=== PATIENT | male | born 1935 | race Caucasian/White ===

== ENCOUNTER 2017-05-30 14:59 | Observation (INO) ==
[2017-05-30 15:36] LABS: Basophils # 0.1 K/mcL (0.0-0.2); Basophils % 0.7 %; Eosinophils # 0.3 K/mcL (0.0-0.6); Eosinophils % 4.8 %; Hematocrit 45.6 % (37.5-50.1); Hemoglobin 15.2 g/dL (12.9-16.9); Immature Granulocytes % 0.3 % (0-4); Lymphocytes % 29.7 %; Mean Corpuscular HGB Conc 33.3 g/dL (31.6-35.5); Mean Corpuscular Hemoglobin 29.9 pg (28.0-33.3); Mean Corpuscular Volume 89.6 fL (83.0-100.0); Mean Platelet Volume 9.3 fL (9.4-12.4); Monocytes # 0.6 K/mcL (0.0-1.3); Neutrophils # 3.7 K/mcL (1.6-8.9); Platelet Count 219 K/mcL (140-400); Red Blood Count 5.09 M/mcL (4.19-5.50); Red Cell Distribution Width 12.7 % (11.5-14.5); Segmented Neutrophils % 55.5 %
[2017-05-30 15:41] LABS: Prothrombin Time 10.5 Seconds (9.4-12.1)
[2017-05-30 15:44] LABS: Activated Partial Thrombo Time 31.7 Seconds (26.0-36.0)
[2017-05-30 15:49] LABS: BUN/Creatinine Ratio 15 (6-26); Blood Urea Nitrogen 21 mg/dL (8-26); Calcium 9.4 mg/dL (8.6-10.8); Carbon Dioxide 26 mEq/L (19-29); Chloride 107 mEq/L (98-109); Glucose 109 mg/dL (70-99); Osmolality,Calculated 294 (280-300); Potassium 4.1 mEq/L (3.5-4.5); Sodium 140 mEq/L (136-145); eGFR For African Americans 58 (> 60); eGFR For Non-African Americans 47 (> 60)
[2017-05-30 15:50] LABS: Ethanol < 10 mg/dL (0-10)
[2017-05-30] MEDS ORDERED: Acetaminophen 325 MG TABLET PO ONE (17:33)
--- NOTE | 2017-05-30 18:07 | Emergency Department Note ---
Disposition Clinical Impression: Transient cerebral ischemia Disposition: Admitted As Inpatient Condition: Good Instructions: Transient Ischemic Attack (ED) Reasons to Return/Additional Instructions: Please follow-up with your primary care provider for continuation of your care. Return to the emergency department if you develop any worsening of your condition or if you develop new concerning symptoms. Referrals: Ellis Dejesus MD [Primary Care Provider] - Forms: ED Satisfaction Letter Neuro HPI - General Chief Complaint: ED Neuro Symptoms/Deficit Stated Complaint: neuro symptoms started at 0800/0830 Time Seen by Provider: 05/30/17 16:00 Source: patient Mode of arrival: ambulatory Limitations: no limitations Nursing Notes Reviewed: Yes Vital Signs Reviewed: Yes - History of Present Illness HPI Narrative: 81-year-old male presents for concerns of left facial paresthesias and slurred speech. Patient states that this is happened one time before last year however it did not happen again until today. Patient states that he has had slurred speech multiple times, starting at 7:30 AM which lasted multiple hours and then improved and then returned again. Patient is currently at his baseline in the emergency department. He denies facial droop or focal motor neurologic deficit. No recent trauma. Has not changed his medications recently. - Related Data Home Medications: Home Medications Medication Instructions Recorded Confirmed Aspirin 81 mg PO DAILY 01/29/17 01/29/17 Cholecalciferol (D-3) [Vitamin D] 2,000 unit PO DAILY 01/29/17 01/29/17 Cyanocobalamin (Vitamin B-12) 1,000 mcg SL DAILY 01/29/17 01/29/17 [Vitamin B-12] Fenofibrate Nanocrystallized 145 mg PO DAILY 01/29/17 01/29/17 [Tricor] Finasteride [Proscar] 5 mg PO DAILY 01/29/17 01/29/17 Furosemide [Lasix] 40 mg PO DAILY PRN 01/29/17 01/29/17 Losartan Potassium [Cozaar] 100 mg PO DAILY 01/29/17 01/29/17 Mv-Mn/FA/Vit K/Lycop/Lut/Coq10 1 each PO DAILY 01/29/17 01/29/17 [Daily Multivitamin Capsule] Oxycodone HCl/Acetaminophen 1 each PO DAILY PRN 01/29/17 01/29/17 [Percocet 5-325 mg Tablet] Simvastatin [Zocor] 20 mg PO HS 01/29/17 01/29/17 Tamsulosin HCl [Flomax] 0.4 mg PO DAILY 01/29/17 01/29/17 Ubidecarenone [Co Q-10] 10 mg PO DAILY 01/29/17 01/29/17 glipiZIDE [Glucotrol] 5 mg PO DAILY 01/29/17 01/29/17 Allergies/Adverse Reactions: Allergies Allergy/AdvReac Type Severity Reaction Status Date / Time sulfamethoxazole Allergy See Verified 01/29/17 07:42 [From Bactrim] Comments trimethoprim [From Bactrim] Allergy See Verified 01/29/17 07:42 Comments All systems ED: reviewed and negative except as stated. Constitutional: Denies: fever, chills, weakness ENT ED: Denies: ear pain, throat pain Cardiovascular: Denies: chest pain, palpitations, dyspnea on exertion Respiratory: Denies: cough, dyspnea, wheezes, hemoptysis Gastrointestinal: Denies: abdominal pain, nausea, vomiting Neurological: Reports: numbness, paresthesias Past Medical History - Past Medical History Attestation: Yes The following information was validated with the patient. Source: patient Medical history: Reports: diabetes, hyperlipidemia, hypertension, RA, renal disease Psychiatric history: Reports: no psych history - Social History Smoking Status: Current some day smoker Smokeless Tobacco Status: No Alcohol use: Reports: none Drug use: Reports: none Physical Exam General: Alert and in no acute distress Skin: Warm, dry, intact Head: Normocephalic and atraumatic Neck: Supple, trachea midline and no tenderness Cardiovascular: RRR, no murmur, normal perfusion Respiratory: CTAB, no wheezing, cough, or respiratory distress Musculoskeletal: Normal strength, no tenderness, swelling or deformity GI: Soft, nontender, nondistended. Bowel sounds present Neuro: A&O to person, place, time and situation. No focal deficits noted on exam. Finger to nose testing and [id number] testing intact bilaterally. Cranial nerve exam intact to examination. No sensory deficits on exam. Psychiatric: cooperative and appropriate mood and affect. - General General appearance: alert, in no apparent distress Course Vital Signs Temperature 97.5 F L 05/30/17 15:02 Pulse Rate 76 05/30/17 15:02 Respiratory Rate 18 05/30/17 15:02 Blood Pressure 172/80 05/30/17 15:02 O2 Sat by Pulse Oximetry 95 05/30/17 15:02 Temperature 97.5 F L 05/30/17 15:02 Pulse Rate 65 05/30/17 17:05 Respiratory Rate 18 05/30/17 17:05 Blood Pressure 148/72 05/30/17 17:05 O2 Sat by Pulse Oximetry 95 05/30/17 17:05 Oxygen Delivery Oxygen Delivery Room Air Neuro Symptoms/Deficit - MDM Narrative Medical decision making narrative: ABCD2 score of 5. CT of the head negative for acute intracranial hemorrhage or mass. Patient will be admitted to the hospital for further evaluation of his paresthesias and slurred speech with a likely MRI. - Medical Records Medical records reviewed: Yes I reviewed the patient's medical records. - Lab Data Lab results reviewed: Yes I reviewed the patient's lab results. Result diagrams: 05/30/17 15:24 05/30/17 15:24 Lab Results 05/30/17 05/30/17 05/30/17 Range/Units 15:03 15:24 15:24 WBC 6.7 (4.3-11.1) K/mcL RBC 5.09 (4.19-5.50) M/mcL Hgb 15.2 (12.9-16.9) g/dL Hct 45.6 (37.5-50.1) % MCV 89.6 (83.0-100.0) fL MCH 29.9 (28.0-33.3) pg MCHC 33.3 (31.6-35.5) g/dL RDW 12.7 (11.5-14.5) % Plt Count 219 (140-400) K/mcL MPV 9.3 L (9.4-12.4) fL Immature Gran % 0.3 (0-4) % Seg Neutrophils % 55.5 % Lymphocytes % 29.7 % Monocytes % 9.0 % Eosinophils % 4.8 % Basophils % 0.7 % Neutrophils # 3.7 (1.6-8.9) K/mcL Lymphocytes # 2.0 (0.6-4.6) K/mcL Monocytes # 0.6 (0.0-1.3) K/mcL Eosinophils # 0.3 (0.0-0.6) K/mcL Basophils # 0.1 (0.0-0.2) K/mcL PT 10.5 (9.4-12.1) Seconds INR 1.0 APTT 31.7 (26.0-36.0) Seconds Sodium (136-145) mEq/L Potassium (3.5-4.5) mEq/L Chloride (98-109) mEq/L Carbon Dioxide (19-29) mEq/L BUN (8-26) mg/dL Creatinine (0.72-1.25) mg/dL Est GFR ( Amer) (> 60) Est GFR (Non-Af Amer) (> 60) BUN/Creatinine Ratio (6-26) Glucose (70-99) mg/dL POC Glucose 96 H (58-89) Calculated Osmolality (280-300) Calcium (8.6-10.8) mg/dL Troponin I (0-0.03) ng/mL Ethyl Alcohol (0-10) mg/dL 05/30/17 05/30/17 Range/Units 15:24 15:24 WBC (4.3-11.1) K/mcL RBC (4.19-5.50) M/mcL Hgb (12.9-16.9) g/dL Hct (37.5-50.1) % MCV (83.0-100.0) fL MCH (28.0-33.3) pg MCHC (31.6-35.5) g/dL RDW (11.5-14.5) % Plt Count (140-400) K/mcL MPV (9.4-12.4) fL Immature Gran % (0-4) % Seg Neutrophils % % Lymphocytes % % Monocytes % % Eosinophils % % Basophils % % Neutrophils # (1.6-8.9) K/mcL Lymphocytes # (0.6-4.6) K/mcL Monocytes # (0.0-1.3) K/mcL Eosinophils # (0.0-0.6) K/mcL Basophils # (0.0-0.2) K/mcL PT (9.4-12.1) Seconds INR APTT (26.0-36.0) Seconds Sodium 140 (136-145) mEq/L Potassium 4.1 (3.5-4.5) mEq/L Chloride 107 (98-109) mEq/L Carbon Dioxide 26 (19-29) mEq/L BUN 21 (8-26) mg/dL Creatinine 1.43 H (0.72-1.25) mg/dL Est GFR ( Amer) 58 L (> 60) Est GFR (Non-Af Amer) 47 L (> 60) BUN/Creatinine Ratio 15 (6-26) Glucose 109 H (70-99) mg/dL POC Glucose (58-89) Calculated Osmolality 294 (280-300) Calcium 9.4 (8.6-10.8) mg/dL Troponin I 0.01 (0-0.03) ng/mL Ethyl Alcohol < 10 (0-10) mg/dL - Radiology Data Radiology results reviewed: Yes I reviewed the patient's radiology results. - EKG Data EKG attestation: Yes I reviewed and interpreted this EKG. EKG results narrative: ECG - interpreted by ED physician. Rate 75, normal sinus rhythm, no STEMI, TN, QT intervals, and QRS within normal limits NIH Stroke Scale - Level of Consciousness LOC: Alert - LOC Questions LOC Questions: Answers both correctly - LOC Commands LOC Commands: Performs both correctly - Best Gaze Best Gaze: Normal - Visual Visual: No visual loss - Facial Palsy Facial Palsy: Normal - Motor Arms Motor Arm-Left: No drift for 10 seconds Motor Arm-Right: No drift for 10 seconds - Motor Legs Motor Leg-Left: No drift for 5 seconds Motor Leg-Right: No drift for 5 seconds - Limb Ataxia Limb Ataxia: Absent of affected limb too weak to perform exam - Sensory Sensory: Normal - Best Language Best Language: No aphasia - Dysarthria Dysarthria: Normal - Extinction and Inattention Extinction and Inattention: Normal - NIHSS Total Score NIHSS Total Score: 0 TPA Checklist - LKW: 3-4.5 hrs Add. Warnings/Precautions Patient/family understanding: The patient/family members have been counseled and understood the risk, benefit , and alternatives of treatment.
[2017-05-30] MEDS ORDERED: Aspirin 81 MG TAB.CHEW PO ONE (18:34)
[2017-05-30 19:40] LABS: Bilirubin,Urine Negative (Negative); Blood,Urine Negative (Negative); Clarity,Urine Clear (Clear); Color,Urine Yellow (Yellow); Glucose,Urine (UA) Normal (Normal); Ketones,Urine Negative (Negative); Leukocyte Esterase,Urine Negative (Negative); Nitrite,Urine Negative (Negative); PH,Urine 6.5 pH Units (5.0-8.0); Protein,Urine Negative (Neg-Trace); Specific Gravity,Urine 1.022 (1.010-1.025); Urobilinogen,Urine Normal (Normal)
[2017-05-30 19:47] LABS: Amphetamine Screen,Urine Negative ng/mL (Cutoff=1000); Barbiturate Screen,Urine Negative ng/mL (Cutoff=200); Benzodiazepines Screen,Urine Negative ng/mL (Cutoff=200); Cannabinoid Screen,Urine Negative ng/mL (Cutoff = 50); Cocaine Screen,Urine Negative ng/mL (Cutoff= 300); Opiate Screen,Urine Negative ng/mL (Cutoff=300); Phencyclidine Screen,Urine Negative ng/mL (Cutoff=25)
[2017-05-30] MEDS ORDERED: 0.9 % Sodium Chloride 1,000 ML IVC SCH (23:45)
[2017-05-30] MEDS ORDERED: Furosemide 40 MG TABLET PO PRN (23:58)
[2017-05-30] MEDS ORDERED: Naloxone 0.4 MG/ML INJ IVP PRN (23:58)
[2017-05-30] MEDS ORDERED: Ondansetron 4 MG/2 ML VIAL IVP PRN (23:58)
--- NOTE | 2017-05-31 00:04 | Internal Med History&Physical ---
Date of Encounter: 05/31/17 Time of Encounter: 00:10 Assessment and Plan (1) Transient cerebral ischemia Current visit: Yes Status: Acute Left arm numbness and left facial numbness - now completely resolved - likely TIA Continue aspirin and statin CT brain - no acute intracranial process CXR - no acute process EKG - NSR with no acute ST-T changes Troponin - negative MRI Brain - pending Echo, Carotid doppler - pending Cardiac tele, labs in a.m. Qualifiers: Transient cerebral ischemia type: unspecified Qualified Code(s): G45.9 - Transient cerebral ischemic attack, unspecified (2) Essential hypertension Current visit: Yes Status: Chronic Essential hypertension, controlled, continue home meds, monitor (3) Type 2 diabetes mellitus Current visit: Yes Status: Chronic Diabetes mellitus type 2, [id number], hyperglycemia Continue insulin sliding scale, glucose checks Qualifiers: Diabetes mellitus complication status: without complication Diabetes mellitus buttermaker helper insulin use: without halfway use Qualified Code(s): E11.9 - Type 2 diabetes mellitus without complications (4) DVT prophylaxis Current visit: Yes Status: Acute Continue heparin subcutaneous Internal Medicine - H&P: HPI Chief complaint: Left arm and facial numbness Admitted From: Emergency Dept Plans for Post Hospital Care: Home History of present illness: Mr. Yung is a 81 year old male with past medical history of hypertension, diabetes, remote history of CVA, hyperlipidemia and BPH. Patient presents to the ED with complaints of left arm numbness and left facial numbness. On examination patient is awake and alert. Not in any distress. Able to provide history. No family at bedside. Patient states he developed left facial numbness and mild slurred speech and left arm numbness earlier in the day. Symptoms lasted for a few hours and then completely resolved. Patient does not does not have a facial droop or any focal neurological deficit. Patient seems to be back at baseline at present. Patient states he been taking all his medications regularly. Patient denies chest pain, denies shortness of breath denies palpitations denies fever vomiting diarrhea or any other problems. He says he feels better now and and does not have any numbness at this point. Initial CT of the head is negative for any acute change. MRI is pending an echocardiogram and ultrasound carotids pending. Patient will be on aspirin and statin. EKG shows normal sinus rhythm with no acute ST-T changes. Patient does not have any slurred speech or any focal deficits or weakness. Further workup pending. Patient has been explained about his condition and plan of care. Understood and agreed. No unanswered questions. CODE STATUS full code. Past Med Surg Social Fam HX - Past Medical History Medical history: CVA, diabetes, hyperlipidemia, hypertension, RA, renal disease Psychiatric history: no psych history - Past Surgical History Surgical History: non-contributory - Social History Smoking Status: Current some day smoker Smokeless Tobacco Status: No Alcohol use: none Drug use: none - Family History Paternal Grandmother Hx Family Cardiac Disorders: No Hx Family Respiratory Disorders: No Hx Family Cancer: No Hx Family GI Disorders: No Hx Family Genitourinary Disorders: No Hx Family Endocrine Disorder: Yes (DM) Hx Family Musculoskeletal Disorders: No Hx Family Neuromuscular Disorders: No Hx Family Neurologic Disorders: No Hx Family HEENT Disorders: No Hx Family Autoimmune Disorders: No Hx Family Reproductive Disorders: No Hx Family Psychosocial Disorders: No Hx Family Medical Disorders: No Internal Medicine - H&P: Meds Aspirin 81 mg PO DAILY 01/29/17 [History] Cholecalciferol (D-3) [Vitamin D] 2,000 unit PO DAILY 01/29/17 [History] Cyanocobalamin (Vitamin B-12) [Vitamin B-12] 1,000 mcg SL DAILY 01/29/17 [ History] Fenofibrate Nanocrystallized [Tricor] 145 mg PO DAILY 01/29/17 [History] Finasteride [Proscar] 5 mg PO DAILY 01/29/17 [History] Furosemide [Lasix] 40 mg PO DAILY PRN 01/29/17 [History] Losartan Potassium [Cozaar] 100 mg PO DAILY 01/29/17 [History] Mv-Mn/FA/Vit K/Lycop/Lut/Coq10 [Daily Multivitamin Capsule] 1 each PO DAILY [History] Oxycodone HCl/Acetaminophen [Percocet 5-325 mg Tablet] 1 each PO DAILY PRN 01/29 [History] Simvastatin [Zocor] 20 mg PO HS 01/29/17 [History] Tamsulosin HCl [Flomax] 0.4 mg PO DAILY 01/29/17 [History] Ubidecarenone [Co Q-10] 10 mg PO DAILY 01/29/17 [History] glipiZIDE [Glucotrol] 5 mg PO DAILY 01/29/17 [History] Allergies sulfamethoxazole [From Bactrim] Allergy (Verified 01/29/17 07:42) See Comments "messes with my blood cells" trimethoprim [From Bactrim] Allergy (Verified 01/29/17 07:42) See Comments "messes with my blood cells" All Systems PM: A 10-system review of systems was performed and is negative for pertinent findings except as documented above in the HPI. - Constitutional Constitutional: no fatigue, no fever(s), no weakness - EENT Eyes: no blurry vision - Cardiovascular Cardiovascular ROS IM: no chest pain, no diaphoresis, no dyspnea, no dyspnea on exertion, no lightheadedness, no orthopnea, no syncope - Respiratory Respiratory: no cough, no dyspnea, no dyspnea on exertion, no wheezing, no chest congestion - Gastrointestinal Gastrointestinal: no abdominal pain, no bloating, no cramping, no diarrhea, no melena, no nausea, no vomiting - Genitourinary Genitourinary ROS male: no dysuria - Musculoskeletal Musculoskeletal ROS IM: no arthralgias - Neurological Neurological ROS: numbness, no abnormal gait, no abnormal speech, no behavioral changes, no dizziness, no focal weakness, no loss of vision, no tingling, no weakness - Constitutional Vitals: Temp Pulse Resp BP Pulse Ox 97.6 F 69 16 153/79 96 05/30/17 23:09 05/30/17 23:09 05/30/17 23:09 05/30/17 23:09 05/30/17 23:09 General appearance: Present: A&O X 3, pleasant, no acute distress, answers questions appropriately - Head Head exam: Present: atraumatic - Eye Eye exam: Present: EOMI - Neck Neck exam general surgery: Present: supple - Respiratory Respiratory exam: Present: CTAB. Absent: chest wall tenderness, rales, rhonchi , wheezes, tachypnea - Cardiovascular Cardiovascular exam: Present: RRR, +S1, +S2 - GI/Abdominal GI/Abdominal exam: Present: soft, no peritoneal signs. Absent: distended, firm , guarding, rigid, tenderness - Extremities Exam Extremities exam: Present: radial pulses palpable and symetrical. Absent: cyanotic, pedal edema, tenderness - Neurological Exam Neurological exam: Present: alert, oriented X3, no focal deficits. Absent: pronater drift, facial droop, speech deficit Internal Med - H&P Results - Labs CBC & Chem 7: 05/31/17 00:33 05/31/17 00:33
[2017-05-31] MEDS ORDERED: *HR* Dextrose 50 % in Water (Syg) 50 ML SYRINGE IVP PRN (00:09)
[2017-05-31] MEDS ORDERED: Dextrose Gel 15 GM PO PRN ×2 (00:09)
[2017-05-31] MEDS ORDERED: D5% in Water 1,000 ML IVC PRN (00:09)
[2017-05-31 00:55] LABS: Basophils % 0.6 %; Eosinophils # 0.3 K/mcL (0.0-0.6); Eosinophils % 5.1 %; Hematocrit 40.9 % (37.5-50.1); Hemoglobin 13.8 g/dL (12.9-16.9); Immature Granulocytes % 0.4 % (0-4); Lymphocytes # 1.9 K/mcL (0.6-4.6); Lymphocytes % 35.1 %; Mean Corpuscular HGB Conc 33.7 g/dL (31.6-35.5); Mean Corpuscular Hemoglobin 29.8 pg (28.0-33.3); Mean Corpuscular Volume 88.3 fL (83.0-100.0); Mean Platelet Volume 9.3 fL (9.4-12.4); Monocytes # 0.5 K/mcL (0.0-1.3); Monocytes % 8.8 %; Neutrophils # 2.7 K/mcL (1.6-8.9); Platelet Count 191 K/mcL (140-400); Red Blood Count 4.63 M/mcL (4.19-5.50); Red Cell Distribution Width 12.9 % (11.5-14.5)
[2017-05-31 01:09] LABS: Calcium 9.2 mg/dL (8.6-10.8); Magnesium 1.8 mg/dL (1.6-2.6); Potassium 3.8 mEq/L (3.5-4.5)
[2017-05-31 01:18] LABS: Hemoglobin A1C 5.9 %
[2017-05-31] MEDS: *HR* Heparin 5,000 UNIT/ML VIAL SQ SCH ×2 (06:30→17:45)
[2017-05-31] MEDS: Insulin LISPRO 300 UNITS/3 ML VIAL SQ SCH ×3 (07:32→17:30)
[2017-05-31] MEDS ORDERED: Aspirin 81 MG TAB.CHEW PO SCH (09:00)
[2017-05-31] MEDS ORDERED: (Ubidecarenone [Co Q-10] 10 MG) PO SCH (09:00)
[2017-05-31] MEDS ORDERED: Famotidine 20 MG TABLET PO SCH (09:00)
[2017-05-31] MEDS: Fenofibrate 54 MG TABLET PO SCH (09:23)
[2017-05-31] MEDS: Multivit/Ca/Min/Fe/FA 1 TAB TABLET PO SCH (09:23)
[2017-05-31] MEDS: Acetaminophen 325 MG TABLET PO PRN (09:23)
[2017-05-31] MEDS: Cyanocobalamin (B-12) 1,000 MCG TABLET PO SCH (09:24)
[2017-05-31] MEDS: Finasteride 5 MG TABLET PO SCH (09:24)
[2017-05-31] MEDS: Cholecalciferol (D-3) 1,000 UNIT TABLET PO SCH (09:24)
--- NOTE | 2017-05-31 17:38 | Event Note ---
Date of Encounter: 05/31/17 Time of Encounter: 14:00 81-year-old male with past medical history of diabetes, hypertension, hyperlipidemia and remote history of suspected CVA. In 1991, patient developed left facial and left arm numbness that lasted for a few hours and then resolved completely, he never saw a doctor. This time, he presented with left arm and facial numbness with associated slurred speech. All his symptoms resolved before arrival to our ED. CT head was unremarkable. Brain MRI showed acute subcentimeter infarcts involving the right precentral gyrus and superior right temporal lobe. Doppler of carotid showed 40-59% stenosis in the right ICA. a/p: 1. Acute stroke. 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 Echocardiogram results pending. Consult neuro. start Plavix and Lipitor. 2. HTN. Continue home dose losartan.
[2017-06-01] MEDS: Acetaminophen 325 MG TABLET PO PRN ×2 (01:34→13:16)
[2017-06-01 05:12] LABS: Basophils % 0.5 %; Eosinophils # 0.3 K/mcL (0.0-0.6); Eosinophils % 4.4 %; Hematocrit 42.6 % (37.5-50.1); Hemoglobin 14.2 g/dL (12.9-16.9); Immature Granulocytes % 0.3 % (0-4); Lymphocytes # 1.9 K/mcL (0.6-4.6); Lymphocytes % 32.6 %; Mean Corpuscular HGB Conc 33.3 g/dL (31.6-35.5); Mean Corpuscular Hemoglobin 29.8 pg (28.0-33.3); Mean Corpuscular Volume 89.3 fL (83.0-100.0); Mean Platelet Volume 9.5 fL (9.4-12.4); Monocytes # 0.6 K/mcL (0.0-1.3); Monocytes % 9.5 %; Neutrophils # 3.1 K/mcL (1.6-8.9); Platelet Count 198 K/mcL (140-400); Red Blood Count 4.77 M/mcL (4.19-5.50); Red Cell Distribution Width 12.8 % (11.5-14.5); Segmented Neutrophils % 52.7 %
[2017-06-01 05:27] LABS: Calcium 9.3 mg/dL (8.6-10.8); Magnesium 1.8 mg/dL (1.6-2.6)
[2017-06-01] MEDS: *HR* Heparin 5,000 UNIT/ML VIAL SQ SCH (05:29)
[2017-06-01] MEDS: Insulin LISPRO 300 UNITS/3 ML VIAL SQ SCH ×2 (07:15→12:39)
[2017-06-01] MEDS: Multivit/Ca/Min/Fe/FA 1 TAB TABLET PO SCH (08:57)
[2017-06-01] MEDS: Fenofibrate 54 MG TABLET PO SCH (08:57)
[2017-06-01] MEDS: Cyanocobalamin (B-12) 1,000 MCG TABLET PO SCH (08:57)
[2017-06-01] MEDS: Finasteride 5 MG TABLET PO SCH (08:58)
[2017-06-01] MEDS: Cholecalciferol (D-3) 1,000 UNIT TABLET PO SCH (08:58)
[2017-06-01] MEDS ORDERED: Famotidine 20 MG TABLET PO SCH (09:00)
--- NOTE | 2017-06-01 09:10 | Neurology - Consult Note ---
Date of Encounter: 06/01/17 Time of Encounter: 09:07 Assessment and Plan (1) Stroke Current Visit: Yes Status: Acute 81-year old man with prior history of hypertension and TIAs, with subacute stroke, with only sensory deficits, matching up to right parietal cortex. Was on ASA 81, which has been changed to plavix. Carotid duplex showing 50% stenosis on the right ICA. Ok with plavix. Symptomatic stenosis of the right ICA should be evaluated (Vascular) - may need endarterectomy. Lipid levels and lipid control. Risk factor control - on diabetic meds Follow-up with outpatient Neurology with Dr. Rubio/Ivet in 2 weeks after discharge. Qualifiers: CVA mechanism: embolism Precerebral and cerebral artery: middle cerebral artery Laterality of affected vessel: right Qualified Code(s): I63.411 - Cerebral infarction due to embolism of right middle cerebral artery History of Present Illness Chief complaint: stroke HPI: Mr. Yung is a 81 year old male with prior history of hypertension, history of TIAs, (previously evaluated 4 years ago, placed on ASA 325, which was changed to 81; also told that he had mild carotid disease on the right) who noticed that he had sensory symptoms in his left face and left arm/hand that did not go away (as usually it does). So he got worried and came here to the hospital. His brother has had similar symptoms and has had to have carotid endarterectomy done on both sides. He had an MRI brain yesterday and was found to have acute strokes in the right parietal lobe. He reports no weakness, and he is ambulating in his room now. No fevers, no chills, no shortness of breath , no chest pain, no diaphoresis. No other complaints. Past Med Surg Social Fam HX - Past Medical History Medical history: CVA, diabetes, hyperlipidemia, hypertension, RA, renal disease Psychiatric history: no psych history - Past Surgical History Surgical History: non-contributory - Social History Smoking Status: Current some day smoker Smokeless Tobacco Status: No Alcohol use: none Drug use: none - Family History Paternal Grandmother Hx Family Cardiac Disorders: No Hx Family Respiratory Disorders: No Hx Family Cancer: No Hx Family GI Disorders: No Hx Family Genitourinary Disorders: No Hx Family Endocrine Disorder: Yes (DM) Hx Family Musculoskeletal Disorders: No Hx Family Neuromuscular Disorders: No Hx Family Neurologic Disorders: No Hx Family HEENT Disorders: No Hx Family Autoimmune Disorders: No Hx Family Reproductive Disorders: No Hx Family Psychosocial Disorders: No Hx Family Medical Disorders: No Medications and Allergies Aspirin 81 mg PO DAILY 01/29/17 [History] Cholecalciferol (D-3) [Vitamin D] 2,000 unit PO DAILY 01/29/17 [History] Cyanocobalamin (Vitamin B-12) [Vitamin B-12] 1,000 mcg SL DAILY 01/29/17 [ History] Fenofibrate Nanocrystallized [Tricor] 145 mg PO DAILY 01/29/17 [History] Finasteride [Proscar] 5 mg PO DAILY 01/29/17 [History] Furosemide [Lasix] 40 mg PO DAILY PRN 01/29/17 [History] Losartan Potassium [Cozaar] 100 mg PO DAILY 01/29/17 [History] Mv-Mn/FA/Vit K/Lycop/Lut/Coq10 [Daily Multivitamin Capsule] 1 each PO DAILY [History] Oxycodone HCl/Acetaminophen [Percocet 5-325 mg Tablet] 1 each PO DAILY PRN 01/29 [History] Simvastatin [Zocor] 20 mg PO HS 01/29/17 [History] Tamsulosin HCl [Flomax] 0.4 mg PO DAILY 01/29/17 [History] Ubidecarenone [Co Q-10] 10 mg PO DAILY 01/29/17 [History] glipiZIDE [Glucotrol] 5 mg PO DAILY 01/29/17 [History] Allergies sulfamethoxazole [From Bactrim] Allergy (Verified 01/29/17 07:42) See Comments "messes with my blood cells" trimethoprim [From Bactrim] Allergy (Verified 01/29/17 07:42) See Comments "messes with my blood cells" All Systems: A 10-system review of systems was performed and is negative for pertinent findings except as documented above in the HPI. - Constitutional Constitutional ROS IM: as per HPI Physical Examination - Vital Signs Vital Signs: Initial Vital Signs Temp Pulse Resp BP Pulse Ox 97.5 F L 76 18 172/80 95 05/30/17 15:02 05/30/17 15:02 05/30/17 15:02 05/30/17 15:02 07/21/17 15:02 Vital Signs - 24 hr 05/31/17 09:20 05/31/17 11:51 05/31/17 15:25 Temperature 97.7 F 98.2 F Pulse Rate 59 66 Respiratory Rate 16 17 Blood Pressure 171/80 162/77 O2 Sat by Pulse Oximetry 97 96 95 05/31/17 19:06 05/31/17 22:29 06/01/17 03:18 Temperature 97.4 F L 98.1 F 97.9 F Pulse Rate 71 70 67 Respiratory Rate 15 18 18 Blood Pressure 154/80 112/54 119/60 O2 Sat by Pulse Oximetry 93 95 94 06/01/17 06:41 Temperature 97.8 F Pulse Rate 65 Respiratory Rate 12 Blood Pressure 137/73 O2 Sat by Pulse Oximetry 96 - Exam Exam: Man of stated age, A&O x 4, ambulating with no motor weakness. - Constitutional General appearance: comfortable - Neurologic Sensorimotor examination: intact, other (no double distinction deficit) Motor examination - right side: 5/5: deltoids, biceps, triceps, wrist flexion, wrist extension, bottom wheeler, hip flexors, tibialis Anterior, quadriceps, toe extension (EHL), plantarflexion Motor examination - left side: 5/5: deltoids, biceps, triceps, wrist flexion, wrist extension, hip flexors, bottom wheeler, quadriceps, tibialis Anterior, toe extension (EHL), plantarflexion Detailed sensory examination: intact Reflex and gait examination: other (left hyper-reflexia in the upper extremities ) Reflexes: Biceps: 2+, Triceps: 2+, Brachioradialis: 2+, Patella: 0, Achilles: 0 Mental Status Examination: awake, alert, oriented to person, oriented to place, oriented to time, follows commands appropriately, answers questions appropriately, no agnosia, no aphasia, no aproxia Cranial nerve examination: PERRL, EOMI, visual kline intact, corneal reflexes brisk symmetrically, sensory to face intact, mastication intact, no facial asymmetry is present, no dysarthria, hearing is intact symmetrically, soft palate elevates bilaterally upon phonation, gag reflex intact, flexes SCM and trapezius muscles symmetrically with full power, tongue protrudes midline, no atrophy or facial fasiculations present Cerebellar examination: no dysmetria, performs finger to nose and heel to carroll symmetrically without ataxia, no gait ataxia, no truncal ataxia, no difficulty with rapid alternating movements Results - Laboratory Findings CBC and BMP: 06/01/17 04:39 06/01/17 04:39 Abnormal lab findings: Abnormal lab results Creatinine 1.42 mg/dL (0.72-1.25) H 06/01/17 04:39 Est GFR ( Amer) 58 (> 60) L 06/01/17 04:39 Est GFR (Non-Af Amer) 48 (> 60) L 06/01/17 04:39 Glucose 105 mg/dL (70-99) H 06/01/17 04:39 POC Glucose 111 (58-89) H 06/01/17 06:45 Hemoglobin A1c 5.9 % (-5.6) H 05/31/17 00:33 Laboratory Results WBC 5.9 K/mcL (4.3-11.1) 06/01/17 04:39 RBC 4.77 M/mcL (4.19-5.50) 06/01/17 04:39 Hgb 14.2 g/dL (12.9-16.9) 06/01/17 04:39 Hct 42.6 % (37.5-50.1) 06/01/17 04:39 MCV 89.3 fL (83.0-100.0) 06/01/17 04:39 MCH 29.8 pg (28.0-33.3) 06/01/17 04:39 MCHC 33.3 g/dL (31.6-35.5) 06/01/17 04:39 RDW 12.8 % (11.5-14.5) 06/01/17 04:39 Plt Count 198 K/mcL (140-400) 06/01/17 04:39 MPV 9.5 fL (9.4-12.4) 06/01/17 04:39 Immature Gran % 0.3 % (0-4) 06/01/17 04:39 Seg Neutrophils % 52.7 % 06/01/17 04:39 Lymphocytes % 32.6 % 06/01/17 04:39 Monocytes % 9.5 % 06/01/17 04:39 Eosinophils % 4.4 % 06/01/17 04:39 Basophils % 0.5 % 06/01/17 04:39 Neutrophils # 3.1 K/mcL (1.6-8.9) 06/01/17 04:39 Lymphocytes # 1.9 K/mcL (0.6-4.6) 06/01/17 04:39 Monocytes # 0.6 K/mcL (0.0-1.3) 06/01/17 04:39 Eosinophils # 0.3 K/mcL (0.0-0.6) 06/01/17 04:39 Basophils # 0.0 K/mcL (0.0-0.2) 06/01/17 04:39 PT 10.5 Seconds (9.4-12.1) 05/30/17 15:24 INR 1.0 05/30/17 15:24 APTT 31.7 Seconds (26.0-36.0) 05/30/17 15:24 Sodium 138 mEq/L (136-145) 06/01/17 04:39 Potassium 4.0 mEq/L (3.5-4.5) 06/01/17 04:39 Chloride 107 mEq/L (98-109) 06/01/17 04:39 Carbon Dioxide 23 mEq/L (19-29) 06/01/17 04:39 BUN 21 mg/dL (8-26) 06/01/17 04:39 Creatinine 1.42 mg/dL (0.72-1.25) H 06/01/17 04:39 Est GFR ( Amer) 58 (> 60) L 06/01/17 04:39 Est GFR (Non-Af Amer) 48 (> 60) L 06/01/17 04:39 BUN/Creatinine Ratio 15 (6-26) 06/01/17 04:39 Glucose 105 mg/dL (70-99) H 06/01/17 04:39 POC Glucose 111 (58-89) H 06/01/17 06:45 Est Mean Plasma Glucose 123 mg/dl 05/31/17 00:33 Hemoglobin A1c 5.9 % (-5.6) H 05/31/17 00:33 Calculated Osmolality 289 (280-300) 06/01/17 04:39 Calcium 9.3 mg/dL (8.6-10.8) 06/01/17 04:39 Magnesium 1.8 mg/dL (1.6-2.6) 06/01/17 04:39 Troponin I 0.01 ng/mL (0-0.03) 05/30/17 15:24 Urine Color Yellow (Yellow) 05/30/17 19:26 Urine Clarity Clear (Clear) 05/30/17 19:26 Urine pH 6.5 pH Units (5.0-8.0) 05/30/17 19:26 Ur Specific [place] 1.022 (1.010-1.025) 05/30/17 19:26 Urine Protein Negative mg/dL (Neg-Trace) 05/30/17 19:26 Urine Glucose (UA) Normal mg/dL (Normal) 05/30/17 19:26 Urine Ketones Negative mg/dL (Negative) 05/30/17 19:26 Urine Blood Negative (Negative) 05/30/17 19:26 Urine Nitrite Negative (Negative) 05/30/17 19:26 Urine Bilirubin Negative (Negative) 05/30/17 19:26 Urine Urobilinogen Normal mg/dL (Normal) 05/30/17 19:26 Ur Leukocyte Esterase Negative (Negative) 05/30/17 19:26 Ur Culture Indicated? NO (NO) 05/30/17 19:26 Urine Opiates Screen Negative ng/mL (Wmhftw=632) 05/30/17 19:26 Ur Barbiturates Screen Negative ng/mL (Fvzcnw=567) 05/30/17 19:26 Ur Phencyclidine Scrn Negative ng/mL (Cutoff=25) 05/30/17 19:26 Ur Amphetamines Screen Negative ng/mL (Ioesba=6718) 05/30/17 19:26 U Benzodiazepines Scrn Negative ng/mL (Mwjsvf=902) 05/30/17 19:26 Urine Cocaine Screen Negative ng/mL (Cutoff= 300) 05/30/17 19:26 U Marijuana (THC) Screen Negative ng/mL (Cutoff = 50) 05/30/17 19:26 Ethyl Alcohol < 10 mg/dL (0-10) 05/30/17 15:24 Impressions Chest X-Ray 05/30/17 15:08 IMPRESSION: No evidence of acute cardiopulmonary disease. D/ / Jovany Li MD / Jovany Li MD Interpreting Provider: Jovany Li MD Head CT 05/30/17 17:38 IMPRESSION: No acute infarct Old right lentiform nucleus region infarct. D/ / Maik Sadler / Maik Sadler Interpreting Provider: Maik Sadler Brain MRI 05/31/17 00:03 IMPRESSION: 1. Acute subcentimeter infarcts involving the right precentral gyrus and superior right temporal lobe measuring 5 mm and 3 mm respectively. 2. No acute intracranial hemorrhage. 3. Remote right basal ganglia infarct. 4. Mild chronic small vessel ischemic changes. The findings were sent to the [facility]iology [facility] at 8:58 am on 05/31/2017to be communicated to a licensed caregiver. D/ / 05/31/2017 10:08:46 Scott Boyd MD / earyasmine Interpreting Provider: Scott Boyd MD Consult Discharge Plan - Plan Referrals: Ellis Dejesus MD [Primary Care Provider] -
[2017-06-01 09:50] LABS: Chol/HDL Ratio 4.7 (0-4.9)
[2017-06-01] MEDS ORDERED: *HR* Morphine 2 MG/ML SYRINGE IVP ONE (10:37)
[2017-06-01 11:00] VITALS: BP 169/81
--- NOTE | 2017-06-01 14:10 | Discharge Summary ---
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 Qualified Code(s): E11.9 - Type 2 diabetes mellitus without complications - Discharge Medications Prescriptions: Atorvastatin [Lipitor] 40 mg PO HS #30 tab Clopidogrel [Plavix] 75 mg PO DAILY #30 tab Home Medications: Cholecalciferol (D-3) [Vitamin D] 2,000 unit PO DAILY 01/29/17 [History] Cyanocobalamin (Vitamin B-12) [Vitamin B-12] 1,000 mcg SL DAILY 01/29/17 [ History] Fenofibrate Nanocrystallized [Tricor] 145 mg PO DAILY 01/29/17 [History] Finasteride [Proscar] 5 mg PO DAILY 01/29/17 [History] Furosemide [Lasix] 40 mg PO DAILY PRN 01/29/17 [History] Losartan Potassium [Cozaar] 100 mg PO DAILY 01/29/17 [History] Mv-Mn/FA/Vit K/Lycop/Lut/Coq10 [Daily Multivitamin Capsule] 1 each PO DAILY [History] Oxycodone HCl/Acetaminophen [Percocet 5-325 mg Tablet] 1 each PO DAILY PRN 01/29 [History] Tamsulosin HCl [Flomax] 0.4 mg PO DAILY 01/29/17 [History] Ubidecarenone [Co Q-10] 10 mg PO DAILY 01/29/17 [History] glipiZIDE [Glucotrol] 5 mg PO DAILY 01/29/17 [History] Atorvastatin [Lipitor] 40 mg PO HS #30 tab 06/01/17 [Rx] Clopidogrel [Plavix] 75 mg PO DAILY #30 tab 06/01/17 [Rx] Allergies/Adverse Reactions: Allergies sulfamethoxazole [From Bactrim] Allergy (Verified 01/29/17 07:42) See Comments "messes with my blood cells" trimethoprim [From Bactrim] Allergy (Verified 01/29/17 07:42) See Comments "messes with my blood cells" Procedures/tests Complete & Pending: Procedures Performed prior 72 hours Category Date Time Status MR angio head wo con [MR] Stat MRI 06/01/17 08:53 Draft MR angio neck wo/w con [MR] Stat MRI 06/01/17 08:53 Draft MR head/brain wo con [MR] Routine MRI 05/31/17 00:03 Completed ECG 12 lead ECG [ECG] AM 0600 Y 05/31/17 06:00 Ordered EV carotid duplex imaging BI Routine Y 05/31/17 00:03 Completed EV echocardiogram Routine Y 05/31/17 00:03 Completed Date of admission: 05/30/17 21:41 Primary care physician: Ellis Dejesus MD Consults: 05/31/17 00:01 Consult to Occupational Therapy [CONS] Routine Comment: Evaluate, develop and implement POC Reason for Consult: pt eval Consult to Physical Therapy [CONS] Routine Comment: Evaluate, develop and implement POC Reason for Consult: ot eval Consult to Radiology Physician [CONS] Routine Reason for SW Consult: d/c planning 05/31/17 00:02 Consult to Speech Therapy [CONS] Routine Comment: Evaluate, develop and implement POC Reason for Consult: swallow eval Call Completed: No 05/31/17 17:35 Consult to Neurology [CONS] Routine Consulting Provider: [facility] Reason for Consult: stroke Call Completed: No - Patient Status Disposition: Home, Self-Care Condition: Good - Discharge Instructions Instructions: Diabetes Mellitus Type 2 in Adults (DC), Ischemic Stroke (DC), Chronic Hypertension (DC) Follow Up With: Ellis Dejesus MD [Primary Care Provider] - (pls provide number to neurology clinic and vascular clinic. follow up in 1-2 weeks.) Additional Instructions: check your blood pressure twice daily, same time in the morning and evening. write down the numbers and bring record to doctor's appointment. check your blood sugars before meals and at bedtime. write down the numbers and bring record to doctor's appointment. - Diet and Activity Activity: resume usual activities as tolerated Diet: diabetic diet, low fat, low cholesterol, low salt diet Interval History: Patient denies any chest pain, shortness of breath, or focal deficit. Hospital course: Mr. Yung is a 81 year old male with past medical history of diabetes, hypertension, hyperlipidemia and remote history of suspected CVA. In 1991, patient developed left facial and left arm numbness that lasted for a few hours and then resolved completely, he never saw a doctor. This time, he presented with left arm and facial numbness with associated slurred speech. All his symptoms resolved before arrival to our ED. CT head was unremarkable. Brain MRI showed acute subcentimeter infarcts involving the right precentral gyrus and superior right temporal lobe. Doppler of carotid showed 40-59% stenosis in the right ICA. Patient diagnosed with acute stroke. Lipid profile checked. Cardiogram showed LVEF 60%, mild concentric LVH. Doppler carotids showed 40-59 % stenosis in the right ICA. MRA of neck and head showed approximately 30% right carotid bulb stenosis, no additional hemodynamically significant stenosis or occlusion in the cervical or intracranial arterial circulation. Patient is started on Plavix and statin. PLAN: Follow-up in the neurology clinic. Follow-up in the vascular surgery clinic. - Time Spent with Patient Total time spent providing and/or coordinating discharge services: - Constitutional Vitals: Temp Pulse Resp BP Pulse Ox 97.8 F 64 16 169/81 95 06/01/17 10:59 06/01/17 10:59 06/01/17 10:59 06/01/17 10:59 06/01/17 10:59 General appearance: Present: cooperative, A&O X 3, pleasant, no acute distress, answers questions appropriately - Neck Neck exam general surgery: Present: supple, trachea midline. Absent: lymphadenopathy - Respiratory Respiratory exam: Present: CTAB - Cardiovascular Cardiovascular exam: Present: RRR - GI/Abdominal GI/Abdominal exam: Present: normal bowel sounds, soft. Absent: distended, tenderness - Extremities Exam Extremities exam: Absent: pedal edema - Back Exam Back exam: Absent: CVA tenderness (L), CVA tenderness (R) - Neurological Exam Neurological exam: Present: alert, oriented X3, no focal deficits, strengths equal and symetr throughout. Absent: facial droop, speech deficit - Skin Skin exam: Absent: rash - Stroke Is the patient on any antithrombotics?: Yes Are there any contradictions to antithrombotics?: No
--- NOTE | 2017-06-02 12:27 | Carotid Imaging Report ---
Carotid Duplex Patient Name:Shaw Yung Order Number:[id number] Procedure Date:05/31/2017 Date:1935ge:81 yrs Gender:Male Location:[facility] Room #: 3B31 Pump Oiler:Hue Johnson, RVT, RDCS Referring MD:Frederick White MD newspaper deliverer:Ellis Dejesus M.D. Reading MD:Rachid Aquino MD , FACS Primary Indications:TIA Risk Factors Yes/No Hypertension Yes Diabetes Yes Hypercholesterolemia Yes Smoking Current Yes Hx of TIA Yes Anticoagulants Yes Impressions: Findings: Right proximal ICA has a moderate, 40-59% stenosis. Findings: Left carotid system has nonstenotic plaque. Findings Carotid Duplex: Right: The right proximal common carotid artery has a PSV of 64 cm/s and a EDV of 13 cm/s. The right mid common carotid artery has a PSV of 90 cm/s and a EDV of 16 cm/s. The right distal common carotid artery has a PSV of 73 cm/s and a EDV of 14 cm/s. There is nonstenotic plaque in the right bifurcation with a PSV of 92 cm/s and a EDV of 16 cm/s. There is calcified plaque. There is 40-59% stenosis in the right proximal internal carotid artery with a PSV of 159 cm/s and a EDV of 28 cm/s. There is calcified plaque. The right mid internal carotid artery has a PSV of 108 cm/s and a EDV of 25 cm/s. The right distal internal carotid artery has a PSV of 73 cm/s and a EDV of 20 cm/s. The right eca has a PSV of 84 cm/s and a EDV of 12 cm/s. The right vertebral artery has a PSV of 42 cm/s and a EDV of 14 cm/s. Left: The left proximal common carotid artery has a PSV of 80 cm/s and a EDV of 15 cm/s. There is nonstenotic plaque in the left mid common carotid artery with a PSV of 105 cm/s and a EDV of 19 cm/s. There is nonstenotic plaque in the left distal common carotid artery with a PSV of 95 cm/s and a EDV of 21 cm/s. There is nonstenotic plaque in the left bifurcation with a PSV of 68 cm/s and a EDV of 14 cm/s. The left proximal internal carotid artery has a PSV of 87 cm/s and a EDV of 18 cm/s. The left mid internal carotid artery has a PSV of 80 cm/s and a EDV of 23 cm/s. The left distal internal carotid artery has a PSV of 72 cm/s and a EDV of 20 cm/s. The left eca has a PSV of 81 cm/s and a EDV of 11 cm/s. The left vertebral artery has a PSV of 41 cm/s and a EDV of 12 cm/s. Carotid Results Right PSV EDV Assessment Proximal CCA 64 13 Normal Mid CCA 90 16 Normal Distal CCA 73 14 Normal Bifurcation 92 16 Non Stenotic Plaque Proximal ICA 159 28 40-59% stenosis Mid ICA 108 25 Normal Distal ICA 73 20 Normal ECA 84 12 Normal Vertebral Artery 42 14 Normal Left PSV EDV Assessment Proximal CCA 80 15 Normal Mid CCA 105 19 Non Stenotic Plaque Distal CCA 95 21 Non Stenotic Plaque Bifurcation 68 14 Non Stenotic Plaque Proximal ICA 87 18 Normal Mid ICA 80 23 Normal Distal ICA 72 20 Normal ECA 81 11 Normal Vertebral Artery 41 12 Normal Ratio's Right ICA/CCA Ratio: 1.77 ICA/CCA Values: 159/90 Left ICA/CCA Ratio: 0.83 ICA/CCA Values: 87/105 Updated by Rachid Aquino MD, FACS on 06/02/2017 12:20:14 PM Rachid Aquino MD electronically signed on 06/02/2017 12:20:31 PM with status of Final
--- NOTE | 2017-06-02 12:48 | Electrocardiograph Report ---
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
--- NOTE | 2017-06-02 13:10 | Electrocardiograph Report ---
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
== END 2017-06-01 15:07 | disposition home or self-care (01) ==
LOC: 3BNU 14:59 → EMEROO 14:59 → 3BNU 22:10 → SUATTDRO 23:58
PROVIDERS: ADMIT Family Medicine; ATTEND Internal Medicine

== ENCOUNTER 2019-12-29 19:47 | Inpatient (IN) ==
[2019-12-29 20:21] LABS: Hemoglobin 16.8 g/dL (12.9-16.9); Mean Corpuscular HGB Conc 33.6 g/dL (31.6-35.5); Mean Corpuscular Hemoglobin 29.5 pg (28.0-33.3); Mean Corpuscular Volume 87.7 fL (83.0-100.0); Mean Platelet Volume 9.4 fL (9.4-12.4); Platelet Count 181 K/mcL (140-400); Red Cell Distribution Width 13.2 % (11.5-14.5); White Blood Count 6.6 K/mcL (4.3-11.1)
[2019-12-29 20:44] LABS: Prothrombin Time 11.2 Seconds (9.4-12.1)
[2019-12-29 20:47] LABS: Activated Partial Thrombo Time 34.5 Seconds (26.0-36.0)
[2019-12-29 21:04] LABS: BUN/Creatinine Ratio 19 (6-26); Blood Urea Nitrogen 23 mg/dL (8-23); Calcium 9.8 mg/dL (8.6-10.3); Carbon Dioxide 25 mEq/L (23-29); Chloride 103 mEq/L (98-107); Glucose 128 mg/dL (70-105); Osmolality,Calculated 295 (280-300); Sodium 140 mEq/L (136-145); Troponin I < 0.03 ng/mL (< 0.04); eGFR For African Americans > 60 (> 60); eGFR For Non-African Americans 57 (> 60)
[2019-12-29] MEDS ORDERED: Aspirin 325 MG TABLET PO ONE (21:51)
[2019-12-29] MEDS ORDERED: Acetaminophen 325 MG TABLET PO PRN (23:34)
[2019-12-29] MEDS ORDERED: Ondansetron 4 MG/2 ML VIAL IVP PRN (23:34)
[2019-12-29] MEDS ORDERED: Naloxone 0.4 MG/ML INJ IVP PRN (23:34)
[2019-12-29] MEDS ORDERED: *HR* Metoprolol 5 MG/5 ML VIAL IVP PRN (23:45)
[2019-12-29] MEDS ORDERED: *HR* Dextrose 50 % in Water (Syg) 50 ML SYRINGE IVP PRN (23:48)
[2019-12-29] MEDS ORDERED: D5% in Water 1,000 ML IVC PRN (23:48)
[2019-12-29] MEDS ORDERED: Dextrose Gel 15 GM/37.5 ML TUBE PO PRN ×2 (23:48)
[2019-12-30] MEDS ORDERED: Melatonin 3 MG TABLET PO PRN (01:07)
[2019-12-30 05:33] LABS: Basophils % 0.5 %; Eosinophils # 0.2 K/mcL (0.0-0.6); Eosinophils % 3.7 %; Hematocrit 45.8 % (37.5-50.1); Hemoglobin 15.6 g/dL (12.9-16.9); Immature Granulocytes % 0.6 % (0-4); Lymphocytes # 1.9 K/mcL (0.6-4.6); Lymphocytes % 29.9 %; Mean Corpuscular HGB Conc 34.1 g/dL (31.6-35.5); Mean Corpuscular Hemoglobin 30.2 pg (28.0-33.3); Mean Corpuscular Volume 88.8 fL (83.0-100.0); Mean Platelet Volume 9.7 fL (9.4-12.4); Monocytes # 0.6 K/mcL (0.0-1.3); Monocytes % 10.2 %; Neutrophils # 3.5 K/mcL (1.6-8.9); Platelet Count 167 K/mcL (140-400); Red Blood Count 5.16 M/mcL (4.19-5.50); Red Cell Distribution Width 13.1 % (11.5-14.5); Segmented Neutrophils % 55.1 %; White Blood Count 6.3 K/mcL (4.3-11.1)
[2019-12-30 05:57] LABS: BUN/Creatinine Ratio 24 (6-26); Blood Urea Nitrogen 26 mg/dL (8-23); Calcium 8.9 mg/dL (8.6-10.3); Chloride 104 mEq/L (98-107); Chol/HDL Ratio 6.6 (0-4.9); Cholesterol 178 mg/dL (< 200); Glucose 107 mg/dL (70-105); HDL Cholesterol 27 mg/dL (40-59); LDL Cholesterol,Calculated 94 mg/dL (0-99); Magnesium 1.8 mg/dL (1.6-2.6); Osmolality,Calculated 293 (280-300); Phosphorous 3.6 mg/dL (2.7-4.5); Potassium 3.9 mEq/L (3.5-5.1); Sodium 139 mEq/L (136-145); Triglycerides 287 mg/dL (< 150); eGFR For African Americans > 60 (> 60); eGFR For Non-African Americans > 60 (> 60)
[2019-12-30 06:22] LABS: Folate > 22.3 ng/mL (3.0-16.0); Vitamin B12 198 pg/mL (250-1100)
[2019-12-30 06:28] LABS: Carbon Dioxide 25 mEq/L (23-29)
[2019-12-30] MEDS ORDERED: Furosemide 40 MG TABLET PO PRN (08:18)
[2019-12-30 08:43] LABS: Estimated Average Glucose 146 mg/dl
[2019-12-30] MEDS: Insulin LISPRO 300 UNITS/3 ML VIAL SQ SCH ×3 (08:45→17:22)
[2019-12-30] MEDS ORDERED: UBIDECARENONE 10 MG PO SCH (09:00)
[2019-12-30] MEDS ORDERED: *HR* Enoxaparin 30 MG/0.3 ML SYRINGE SQ SCH (09:00)
[2019-12-30] MEDS: Finasteride 5 MG TABLET PO SCH (10:56)
[2019-12-30] MEDS ORDERED: *HR* LORazepam 2 MG/ML VIAL IVP ONE (11:38)
[2019-12-30] MEDS: Cyanocobalamin (B-12) 1,000 MCG TABLET PO SCH (11:56)
[2019-12-30] MEDS: Aspirin 81 MG TAB.CHEW PO SCH (11:56)
[2019-12-30] MEDS ORDERED: Insulin LISPRO 300 UNITS/3 ML VIAL SQ SCH (21:00)
[2019-12-31] MEDS ORDERED: *HR* Enoxaparin 40 MG/0.4 ML SYRINGE SQ SCH (06:00)
[2019-12-31] MEDS: Aspirin 81 MG TAB.CHEW PO SCH (07:37)
[2019-12-31] MEDS: Cyanocobalamin (B-12) 1,000 MCG TABLET PO SCH (07:37)
[2019-12-31] MEDS: Finasteride 5 MG TABLET PO SCH (07:37)
[2019-12-31] MEDS: Insulin LISPRO 300 UNITS/3 ML VIAL SQ SCH ×2 (08:10→12:56)
[2019-12-31 11:03] LABS: Adenovirus Not Detected (Not Detect); Bordetella Pertussis Not Detected (Not Detect); Chlamydophila pneumoniae Not Detected (Not Detect); Coronavirus 229E Not Detected (Not Detect); Coronavirus HKU1 Not Detected (Not Detect); Coronavirus NL63 Not Detected (Not Detect); Coronavirus OC43 Not Detected (Not Detect); Human Metapneumovirus Not Detected (Not Detect); Human Rhinovirus/Enterovirus Not Detected (Not Detect); Influenza A Subtype 2009 H1 Not Detected (Not Detect); Influenza B Not Detected (Not Detect); Mycoplasma pneumoniae Not Detected (Not Detect); Parainfluenza Virus 1 Not Detected (Not Detect); Parainfluenza Virus 2 Not Detected (Not Detect); Parainfluenza Virus 3 Not Detected (Not Detect); Parainfluenza Virus 4 Not Detected (Not Detect); Respiratory Syncytial Virus Not Detected (Not Detect)
[2019-12-31] MEDS ORDERED: Lidocaine Viscous Oral Soln 15 ML SOLUTION MM PRN (13:31)
[2019-12-31] MEDS ORDERED: 0.9 % Sodium Chloride 500 ML IVC ONE (13:31)
[2019-12-31] MEDS: *HR* Midazolam HCl 5 MG/5 ML VIAL IVP PRN ×2 (13:50→13:55)
[2019-12-31] MEDS: *HR* FentaNYL (PF) 100 MCG/2 ML VIAL IVP PRN ×2 (13:50→13:55)
[2019-12-31 15:49] VITALS: BP 128/68
== END 2019-12-31 16:06 | disposition home or self-care (01) | DRG 65 ==
LOC: 3BNU 19:47 → EMEROOARM 19:47 → SUATTDRO 22:55 → 3BNU 23:31
PROVIDERS: ADMIT Internal Medicine; ATTEND Internal Medicine

== ENCOUNTER 2022-01-29 10:01 | Inpatient (IN) ==
[2022-01-29] MEDS ORDERED: Lidocaine HCL 4 ML Topical Solution (Laryng-O-Jet Kit Sterile Pak) TP ONE (10:22)
[2022-01-29] MEDS ORDERED: CeFAZolin Syr 2,000MG/20 ML 2,000 MG/20 ML SYRINGE IVPB ONE (10:31)
[2022-01-29] MEDS ORDERED: *HR* FentaNYL (PF) 100 MCG/2 ML VIAL IVP PRN (10:33)
[2022-01-29] MEDS ORDERED: *HR* Remifentanil 1 MG VIAL IVP ONE ×2 (10:37→15:39)
[2022-01-29] MEDS ORDERED: Lidocaine -MPF 2% 5 ML VIAL ONE (10:38)
[2022-01-29] MEDS ORDERED: *HR* FentaNYL (PF) 100 MCG/2 ML VIAL ONE (10:39)
[2022-01-29] MEDS ORDERED: *HR* Rocuronium Bromide 50 MG/5 ML VIAL ONE (10:40)
[2022-01-29] MEDS ORDERED: *HR* Propofol 200 MG/20 ML VIAL IVP ONE (10:40)
[2022-01-29] MEDS ORDERED: *HR* Succinylcholine 200 MG/10 ML VIAL IVP ONE (10:40)
[2022-01-29] MEDS ORDERED: *HR* Heparin 5,000 UNIT/ML VIAL ONE (10:42)
[2022-01-29] MEDS ORDERED: Ondansetron 4 MG/2 ML VIAL ONE (10:42)
[2022-01-29] MEDS ORDERED: Heparin 1,000 UNITS/500 mL 500 ML ONE ×2 (10:43→15:04)
[2022-01-29] MEDS ORDERED: Ringers Solution, Lactated 1,000 ML IVC SCH (10:45)
[2022-01-29] MEDS ORDERED: ceFAZolin 1,000 MG, Sodium Chloride IRRigation 1,000 ML IR ONE (11:40)
[2022-01-29] MEDS ORDERED: Protamine Sulfate 50 MG/5 ML VIAL IVP ONE (11:56)
[2022-01-29] MEDS ORDERED: EPHEDrine 50 MG/ML VIAL ONE (13:02)
[2022-01-29] MEDS ORDERED: Acetaminophen IV 1,000 MG/100 ML BAG IVPB ONE (13:50)
[2022-01-29] MEDS ORDERED: Acetaminophen 325 MG TABLET PO PRN (17:36)
[2022-01-29] MEDS ORDERED: Furosemide 40 MG TABLET PO PRN (17:36)
[2022-01-29] MEDS ORDERED: *HR* OxyCODONE Immed Rel 5 MG TABLET PO PRN (17:36)
[2022-01-29] MEDS ORDERED: Naloxone 0.4 MG/ML INJ IVP PRN (17:36)
[2022-01-29] MEDS ORDERED: *HR* Labetalol 20 MG/4 ML SYRINGE IVP PRN (17:36)
[2022-01-29] MEDS: Aspirin Enteric Coated 81 MG Tablet PO SCH (18:22)
[2022-01-29] MEDS: CeFAZolin 2 GM/120 ML BAG IVPB SCH (18:24)
[2022-01-29] MEDS: *HR* HYDROcodone/Acet 5/325 mg TABLET PO PRN (23:32)
[2022-01-30] MEDS: CeFAZolin 2 GM/120 ML BAG IVPB SCH ×2 (02:49→10:32)
[2022-01-30 04:04] LABS: Basophils % 0.1 %; Hematocrit 39.9 % (37.5-50.1); Immature Granulocytes % 0.5 % (0-4); Lymphocytes % 9.2 %; Mean Corpuscular HGB Conc 33.8 g/dL (31.6-35.5); Mean Corpuscular Hemoglobin 30.3 pg (28.0-33.3); Mean Corpuscular Volume 89.7 fL (83.0-100.0); Mean Platelet Volume 9.6 fL (9.4-12.4); Monocytes # 0.7 K/mcL (0.0-1.3); Monocytes % 6.1 %; Neutrophils # 9.1 K/mcL (1.6-8.9); Platelet Count 161 K/mcL (140-400); Red Blood Count 4.45 M/mcL (4.19-5.50); Red Cell Distribution Width 12.8 % (11.5-14.5); Segmented Neutrophils % 84.1 %
[2022-01-30 04:05] LABS: Hemoglobin 13.5 g/dL (12.9-16.9); White Blood Count 10.8 K/mcL (4.3-11.1)
[2022-01-30 04:55] LABS: BUN/Creatinine Ratio 23 (6-26); Blood Urea Nitrogen 31 mg/dL (8-23); Calcium 8.5 mg/dL (8.6-10.3); Carbon Dioxide 23 mEq/L (23-29); Chloride 103 mEq/L (98-107); Glucose 181 mg/dL (70-105); Osmolality,Calculated 291 (280-300); Potassium 4.9 mEq/L (3.5-5.1); Sodium 135 mEq/L (136-145); eGFR For African Americans > 60 (> 60); eGFR For Non-African Americans 50 (> 60)
[2022-01-30] MEDS ORDERED: GlipiZIDE 5 MG TABLET PO SCH (08:00)
[2022-01-30] MEDS ORDERED: Omega-3/Dha/Epa/Fish Oil [Fish Oil 1,000 Mg Softgel] PO SCH (09:00)
[2022-01-30] MEDS ORDERED: lisinopriL 5 MG TABLET PO SCH (09:00)
[2022-01-30] MEDS ORDERED: Cyanocobalamin (B-12) 1,000 MCG TABLET PO SCH (09:00)
[2022-01-30] MEDS ORDERED: Ubidecarenone [Co Q-10] 10 MG Capsule PO SCH (09:00)
[2022-01-30] MEDS ORDERED: Cholecalciferol (D-3) 1,000 UNIT (25MCG) TABLET PO SCH (09:00)
[2022-01-30] MEDS ORDERED: Multivit/Ca/Min/Fe/FA 1 TAB TABLET PO SCH (09:00)
[2022-01-30] MEDS: *HR* HYDROcodone/Acet 5/325 mg TABLET PO PRN (10:32)
[2022-01-30 15:38] VITALS: BP 154/46; PULSE 71; TEMP 97.7; O2SAT 94
[2022-01-30] MEDS: Aspirin Enteric Coated 81 MG Tablet PO SCH (18:26)
== END 2022-01-30 19:02 | disposition home or self-care (01) | DRG 39 ==
LOC: SAMDAY 10:01 → 2NNU 17:40
PROVIDERS: ADMIT Surgery Vascular Surgery; ATTEND Surgery Vascular Surgery